=== PATIENT | male | born 1945 | race Two or more races ===

== ENCOUNTER 2016-09-27 08:33 | Emergency (ER) | payer MEDICARE, MEDICAID ==
[~2016-09-27] VITALS: Ht 172.7 cm; Wt 97.1 kg
[~2016-09-27 08:33] MED LIST: ACE3T PO; B-COCAP23 PO; CALC667C PO; CHOL50006 PO; CLIN1CAP4 PO; DOC100C PO; GABA300C8 PO; GLIP-115 PO; INSU70IN9 SC; OMEP20TA44 PO; SACC250C PO; SIMV-13 PO; TERA5CAP42 PO; TRAM50TA2 PO; WARF2TAB55 PO
[2016-09-27 09:19] VITALS: BP 121/63
[2016-09-27 09:42] LABS: Basophils # (auto) 0 uL; Basophils % (auto) 0.2 % (0.0-2.0); Eosinophils # (auto) 0.1 uL; Eosinophils % (auto) 1.6 % (0.0-7.0); Hematocrit 42.5 % (41.0-53.0); Hemoglobin 13.7 g/dL (13.5-17.5); Lymphocytes # (auto) 0.8 uL; Mean Corpuscular Hemoglobin 30.6 pg (28.0-32.0); Mean Corpuscular Hgb Conc. 32.1 g/dL (32.0-36.0); Mean Corpuscular Volume 95.2 fL (80.0-100.0); Mean Platelet Volume 6.2 fL (7.4-10.4); Monocytes # (auto) 0.4 uL; Monocytes % (auto) 6.9 % (0.0-12.0); Neutrophils # (auto) 4.2 uL; Neutrophils % (auto) 77.3 % (37.0-80.0); Platelet Count (auto) 185 10^3/uL (140-450); Red Cell Distribution Width 17.3 % (11.6-16.0); White Blood Cell 5.4 10^3/uL (4.4-10.8)
[2016-09-27 10:07] LABS: Albumin 3.6 g/dL (3.4-5.0); BUN/Creatinine Ratio 5.5; Bilirubin, Total 0.6 mg/dL (0.2-1.0); Calcium 8.7 mg/dL (8.5-10.1); Potassium 4.2 mmol/L (3.5-5.1); Total Protein 7.4 g/dL (6.4-8.2)
== END 2016-09-27 10:06 | disposition home or self-care (01) ==
LOC: ER 08:33
DX: L02.413 Cutaneous abscess of right upper limb (principal); Z79.899 Other long term (current) drug therapy; Z79.4 Long term (current) use of insulin; Z79.01 Long term (current) use of anticoagulants; I13.2 Hypertensive heart and chronic kidney disease with heart failure and with stage 5 chronic kidney disease, or end stage renal disease; N18.6 End stage renal disease; I50.9 Heart failure, unspecified; E11.22 Type 2 diabetes mellitus with diabetic chronic kidney disease; E78.5 Hyperlipidemia, unspecified; Z86.73 Personal history of transient ischemic attack (TIA), and cerebral infarction without residual deficits; Z99.2 Dependence on renal dialysis
CPT/HCPCS: 36415; 80053; 82962; 85025

== ENCOUNTER 2017-07-13 13:18 | Emergency (ER) | payer MEDICARE, MEDICAID ==
[~2017-07-13] VITALS: Ht 172.7 cm; Wt 111.1 kg
[~2017-07-13 13:18] MED LIST changes: +CEPH-37 PO; -CLIN1CAP4 PO; +GABA-497 PO; -GABA300C8 PO
[2017-07-13 14:10] LABS: Basophils # (auto) 0.1 uL; Basophils % (auto) 1.1 % (0.0-2.0); Eosinophils # (auto) 0.2 uL; Eosinophils % (auto) 3.1 % (0.0-7.0); Hematocrit 36.3 % (41.0-53.0); Lymphocytes # (auto) 1.1 uL; Lymphocytes % (auto) 17.2 % (10.0-50.0); Mean Corpuscular Hemoglobin 31.6 pg (28.0-32.0); Mean Corpuscular Hgb Conc. 33.2 g/dL (32.0-36.0); Mean Corpuscular Volume 95.3 fL (80.0-100.0); Monocytes # (auto) 0.6 uL; Monocytes % (auto) 8.5 % (0.0-12.0); Neutrophils # (auto) 4.6 uL; Neutrophils % (auto) 70.1 % (37.0-80.0); Nucleated Red Blood Cells % 0.1 %; Platelet Count (auto) 123 10^3/uL (140-450); Red Blood Cells 3.81 10^6/uL (4.5-5.90); Red Cell Distribution Width 15.1 % (11.8-14.3); White Blood Cell 6.6 10^3/uL (4.4-10.8)
[2017-07-13 14:49] LABS: Albumin 3.7 g/dL (3.4-5.0); BUN/Creatinine Ratio 6.3; Bilirubin, Total 0.5 mg/dL (0.2-1.0); Calcium 7.8 mg/dL (8.5-10.1); Potassium 4.8 mmol/L (3.5-5.1); Total Protein 7.8 g/dL (6.4-8.2)
[2017-07-14] MEDS ORDERED: CLINDAMYCIN HCL 150 MG CAP PO ONE (00:15)
[2017-07-14] MEDS ORDERED: CEPHALEXIN 250 MG CAP PO ONE (00:15)
[2017-07-14 01:20] VITALS: BP 168/81
== END 2017-07-14 01:31 | disposition home or self-care (01) ==
LOC: ER 13:18
DX: T82.9XXA Unspecified complication of cardiac and vascular prosthetic device, implant and graft, initial encounter (principal); I13.2 Hypertensive heart and chronic kidney disease with heart failure and with stage 5 chronic kidney disease, or end stage renal disease; E11.22 Type 2 diabetes mellitus with diabetic chronic kidney disease; N18.6 End stage renal disease; I50.9 Heart failure, unspecified; Z79.4 Long term (current) use of insulin; E78.5 Hyperlipidemia, unspecified; Z86.73 Personal history of transient ischemic attack (TIA), and cerebral infarction without residual deficits; Y92.89 Other specified places as the place of occurrence of the external cause
CPT/HCPCS: 36415; 80053; 85025; 87040

== ENCOUNTER 2017-10-01 23:59 | Inpatient (IN) | payer MEDICARE, MEDICAID ==
[~2017-10-01] VITALS: Ht 172.7 cm; Wt 115.1 kg
[~2017-10-01 23:59] MED LIST changes: -GABA-497 PO; +GABA300C10 PO
[2017-10-02] MEDS ORDERED: SODIUM CHLORIDE 0.9% 300 ML IV ONE (00:45)
[2017-10-02 01:15] LABS: Basophils # (auto) 0 uL; Basophils % (auto) 0.2 % (0.0-2.0); Eosinophils # (auto) 0 uL; Eosinophils % (auto) 0.3 % (0.0-7.0); Hematocrit 41.5 % (41.0-53.0); Hemoglobin 13.5 g/dL (13.5-17.5); Lymphocytes # (auto) 0.4 uL; Lymphocytes % (auto) 2.5 % (10.0-50.0); Mean Corpuscular Hemoglobin 31.1 pg (28.0-32.0); Mean Corpuscular Hgb Conc. 32.6 g/dL (32.0-36.0); Mean Corpuscular Volume 95.6 fL (80.0-100.0); Monocytes # (auto) 0.7 uL; Monocytes % (auto) 4.8 % (0.0-12.0); Neutrophils # (auto) 13.9 uL; Neutrophils % (auto) 92.2 % (37.0-80.0); Platelet Count (auto) 134 10^3/uL (140-450); Red Blood Cells 4.34 10^6/uL (4.5-5.90)
[2017-10-02 01:23] LABS: INR 2.78 (0.9-1.15); Partial Thromboplastin Time 42.9 sec (22.64-33.71); Prothrombin Time 30.6 sec (9.37-12.3)
[2017-10-02 02:04] LABS: Albumin 3.2 g/dL (3.4-5.0); BUN/Creatinine Ratio 6.3; Bilirubin, Total 0.5 mg/dL (0.2-1.0); Calcium 8.2 mg/dL (8.5-10.1); Magnesium 2.2 mg/dL (1.6-2.6); Potassium 5.1 mmol/L (3.5-5.1)
[2017-10-02] MEDS ORDERED: ACETAMINOPHEN 325 MG TAB PO ONE (04:00)
[2017-10-02] MEDS ORDERED: IBUPROFEN 600 MG TAB PO ONE (05:15)
[2017-10-02] MEDS ORDERED: cefTRIAXone 1GM/10ml IVPUSH 10 ML IV ONE (05:30)
[2017-10-02] MEDS ORDERED: FUROSEMIDE 40 MG/4 ML VIAL IV ONE (05:30)
[2017-10-02] MEDS ORDERED: ONDANSETRON HCL 4 MG/2 ML VIAL IV PRN (05:45)
[2017-10-02] MEDS ORDERED: ACETAMINOPHEN 500 MG TAB PO PRN (05:45)
[2017-10-02] MEDS ORDERED: VANCOMYCIN PER PHARMACY 0 MG IV SCH (05:45)
[2017-10-02] MEDS: GABAPENTIN 300 MG CAP PO SCH ×3 (05:58→21:47)
[2017-10-02] MEDS ORDERED: VANCOMYCIN 1GM/250ML 250 ML IV ONE (06:00)
[2017-10-02] MEDS ORDERED: MORPHINE SULF INJ 2 MG/ML SYRINGE 1ML IV PRN (06:15)
[2017-10-02] MEDS ORDERED: NITROGLYCERIN 0.4 MG SL TAB SL PRN (06:15)
[2017-10-02 09:26] VITALS: BP 139/57
[2017-10-02] MEDS ORDERED: SODIUM CHL 0.9% 1000 ML BAG XX ONE (11:15)
[2017-10-02] MEDS ORDERED: DEXTROSE (50%) 50ML SYRG IV PRN (14:15)
[2017-10-02 14:46] LABS: Urine Bacteria MANY /hpf (None Seen); Urine Blood 1+ /uL (Negative); Urine Mucus FEW (None Seen); Urine Specific Gravity 1.014 (1.001-1.035); Urine WBC 513 /hpf (0 - 3); Urine WBC Clumps PRESENT /hpf (None Seen)
[2017-10-02] MEDS ORDERED: WARFARIN SODIUM 2 MG TAB PO ONE (17:00)
[2017-10-02] MEDS: PANTOPRAZOLE 40 MG TAB PO SCH (17:43)
[2017-10-02] MEDS: ACCU-CHEK COMFORT CURVE STRIP VI SCH ×2 (17:51→21:48)
[2017-10-02] MEDS: InsuLIN REG 1unit/0.01ml Soln (100units/ml) SC SCH ×2 (17:54→21:48)
[2017-10-02 18:35] VITALS: BP 110/90
[2017-10-02] MEDS: ATORVASTATIN 20 MG TAB PO SCH (21:47)
[2017-10-02 22:00] VITALS: BP 98/43
[2017-10-03 05:00] VITALS: BP 130/40
[2017-10-03] MEDS: GABAPENTIN 300 MG CAP PO SCH ×3 (05:31→20:41)
[2017-10-03] MEDS: ACCU-CHEK COMFORT CURVE STRIP VI SCH ×5 (06:10→22:00)
[2017-10-03] MEDS: InsuLIN REG 1unit/0.01ml Soln (100units/ml) SC SCH ×4 (06:10→20:42)
[2017-10-03 08:00] VITALS: BP 106/50
[2017-10-03 08:24] LABS: Basophils # (auto) 0 uL; Basophils % (auto) 0.1 % (0.0-2.0); Eosinophils # (auto) 0 uL; Eosinophils % (auto) 0.3 % (0.0-7.0); Hematocrit 38.9 % (41.0-53.0); Hemoglobin 12.6 g/dL (13.5-17.5); Lymphocytes # (auto) 0.9 uL; Lymphocytes % (auto) 7.7 % (10.0-50.0); Mean Corpuscular Hemoglobin 30.8 pg (28.0-32.0); Mean Corpuscular Hgb Conc. 32.3 g/dL (32.0-36.0); Mean Corpuscular Volume 95.3 fL (80.0-100.0); Monocytes # (auto) 0.9 uL; Monocytes % (auto) 7.2 % (0.0-12.0); Neutrophils # (auto) 10.4 uL; Neutrophils % (auto) 84.7 % (37.0-80.0); Platelet Count (auto) 114 10^3/uL (140-450); Red Blood Cells 4.08 10^6/uL (4.5-5.90); Red Cell Distribution Width 16.5 % (11.8-14.3); White Blood Cell 12.3 10^3/uL (4.4-10.8)
[2017-10-03 08:44] LABS: Albumin 2.8 g/dL (3.4-5.0); BUN/Creatinine Ratio 6.2; Bilirubin, Total 0.6 mg/dL (0.2-1.0); Calcium 7.9 mg/dL (8.5-10.1); Potassium 4.5 mmol/L (3.5-5.1); Total Protein 6.7 g/dL (6.4-8.2)
[2017-10-03 08:47] LABS: INR 1.88 (0.9-1.15); Partial Thromboplastin Time 46.8 sec (22.64-33.71); Prothrombin Time 20.6 sec (9.37-12.3)
[2017-10-03 09:22] VITALS: BP 129/64
[2017-10-03] MEDS ORDERED: SODIUM CHL 0.9% 1000 ML BAG XX ONE (10:15)
[2017-10-03] MEDS: PANTOPRAZOLE 40 MG TAB PO SCH (10:53)
[2017-10-03] MEDS: cefTRIAXone 1GM/10ml IVPUSH 10 ML IV SCH (10:53)
[2017-10-03] MEDS: HYDROcodone-ACET 5/325MG TAB PO PRN ×3 (10:54→20:41)
[2017-10-03] MEDS ORDERED: AZITHROMYCIN 500MG/ 250ML 250 ML IV ONE (11:45)
[2017-10-03] MEDS ORDERED: guaiFENesin-DM 100/10mg/5ml SYR PO PRN (11:45)
[2017-10-03 12:12] VITALS: BP 119/63
[2017-10-03] MEDS ORDERED: WARFARIN SODIUM 2.5 MG TAB PO ONE (17:00)
[2017-10-03 17:25] VITALS: BP 81/52
[2017-10-03] MEDS: ATORVASTATIN 20 MG TAB PO SCH (20:41)
[2017-10-03 22:00] VITALS: BP 150/65
[2017-10-04] VITALS (7 sets, daily range): BP systolic 102–136; BP diastolic 35–58
[2017-10-04] MEDS: GABAPENTIN 300 MG CAP PO SCH ×3 (05:13→22:24)
[2017-10-04] MEDS: InsuLIN REG 1unit/0.01ml Soln (100units/ml) SC SCH ×4 (05:13→22:28)
[2017-10-04] MEDS: ACCU-CHEK COMFORT CURVE STRIP VI SCH ×3 (05:13→18:08)
[2017-10-04 08:13] LABS: BUN/Creatinine Ratio 8.2; Calcium 7.8 mg/dL (8.5-10.1); Potassium 4.9 mmol/L (3.5-5.1)
[2017-10-04 08:15] LABS: Basophils # (auto) 0 uL; Basophils % (auto) 0.4 % (0.0-2.0); Eosinophils # (auto) 0 uL; Eosinophils % (auto) 0.8 % (0.0-7.0); Hematocrit 35.1 % (41.0-53.0); Hemoglobin 11.7 g/dL (13.5-17.5); Lymphocytes # (auto) 0.5 uL; Mean Corpuscular Hemoglobin 31.8 pg (28.0-32.0); Mean Corpuscular Hgb Conc. 33.2 g/dL (32.0-36.0); Mean Corpuscular Volume 95.7 fL (80.0-100.0); Monocytes # (auto) 0.4 uL; Monocytes % (auto) 7.3 % (0.0-12.0); Neutrophils # (auto) 4.9 uL; Neutrophils % (auto) 82.5 % (37.0-80.0); Platelet Count (auto) 109 10^3/uL (140-450); Red Blood Cells 3.67 10^6/uL (4.5-5.90); Red Cell Distribution Width 16.5 % (11.8-14.3)
[2017-10-04 08:17] LABS: INR 1.89 (0.9-1.15); Prothrombin Time 20.7 sec (9.37-12.3)
[2017-10-04] MEDS: cefTRIAXone 1GM/10ml IVPUSH 10 ML IV SCH (13:55)
[2017-10-04] MEDS: PANTOPRAZOLE 40 MG TAB PO SCH (13:56)
[2017-10-04] MEDS: AZITHROMYCIN 500MG/ 250ML 250 ML IV SCH (13:56)
[2017-10-04] MEDS ORDERED: LEVO500T21 PO (13:59)
[2017-10-04] MEDS ORDERED: WARFARIN SODIUM 2.5 MG TAB PO ONE (17:00)
[2017-10-04] MEDS: ATORVASTATIN 20 MG TAB PO SCH (22:23)
[2017-10-05 05:17] VITALS: BP 131/48
[2017-10-05] MEDS: GABAPENTIN 300 MG CAP PO SCH (05:39)
[2017-10-05] MEDS: ACCU-CHEK COMFORT CURVE STRIP VI SCH ×2 (06:20→11:30)
[2017-10-05] MEDS: InsuLIN REG 1unit/0.01ml Soln (100units/ml) SC SCH ×2 (06:21→11:30)
[2017-10-05 08:30] LABS: Basophils # (auto) 0 uL; Basophils % (auto) 0.5 % (0.0-2.0); Eosinophils # (auto) 0 uL; Hematocrit 38.3 % (41.0-53.0); Hemoglobin 12.6 g/dL (13.5-17.5); Lymphocytes # (auto) 0.8 uL; Lymphocytes % (auto) 17.7 % (10.0-50.0); Mean Corpuscular Hemoglobin 31.1 pg (28.0-32.0); Mean Corpuscular Volume 94.4 fL (80.0-100.0); Monocytes # (auto) 0.7 uL; Monocytes % (auto) 14.8 % (0.0-12.0); Nucleated Red Blood Cells % 0.2 %; Platelet Count (auto) 122 10^3/uL (140-450); Red Blood Cells 4.06 10^6/uL (4.5-5.90); Red Cell Distribution Width 15.9 % (11.8-14.3); White Blood Cell 4.5 10^3/uL (4.4-10.8)
[2017-10-05 08:36] LABS: INR 1.79 (0.9-1.15); Partial Thromboplastin Time 39.4 sec (22.64-33.71); Prothrombin Time 19.6 sec (9.37-12.3)
[2017-10-05 08:45] LABS: BUN/Creatinine Ratio 7.6; Potassium 4.8 mmol/L (3.5-5.1)
[2017-10-05] MEDS: cefTRIAXone 1GM/10ml IVPUSH 10 ML IV SCH (09:00)
[2017-10-05 09:18] VITALS: BP 113/62
[2017-10-05 09:44] VITALS: BP 113/62
[2017-10-05] MEDS: AZITHROMYCIN 500MG/ 250ML 250 ML IV SCH (10:00)
[2017-10-05] MEDS: PANTOPRAZOLE 40 MG TAB PO SCH (11:08)
[2017-10-05 13:21] VITALS: BP 127/76
[2017-10-05] MEDS ORDERED: WARFARIN SODIUM 10 MG TAB PO ONE (17:00)
[2017-12-23] MEDS ORDERED: GABA300C10 PO (02:29)
[2017-12-23] MEDS ORDERED: CALC667C PO (02:29)
[2017-12-23] MEDS ORDERED: OME20T PO (02:29)
[2017-12-23] MEDS ORDERED: ACET30TA15 PO (02:29)
[2017-12-23] MEDS ORDERED: INSREG3 SC (02:29)
[2017-12-23] MEDS ORDERED: BIS10RS PR (02:29)
[2017-12-23] MEDS ORDERED: WARF4TAB33 PO (02:29)
[2017-12-23] MEDS ORDERED: CHOL1000 PO (02:29)
[2017-12-23] MEDS ORDERED: INS7030I SC (02:29)
[2017-12-23] MEDS ORDERED: SIMV-13 PO (02:29)
[2017-12-23] MEDS ORDERED: DOCU100T15 PO (02:29)
[2017-12-23] MEDS ORDERED: TRAM50TA2 PO (02:29)
[2017-12-23] MEDS ORDERED: GLIP-116 PO (02:29)
[2017-12-23] MEDS ORDERED: TERA5CAP42 PO (02:29)
== END 2017-10-05 11:55 | DRG 871 ==
LOC: EDBD 23:59 → EDUNIT# 23:59 → ER 10-02 00:03 → TELE 10-02 00:04 → TELE-CENTR 10-02 18:57
PROVIDERS: ADMIT Nurse Practitioner Family; ATTEND Internal Medicine
DX: A41.9 Sepsis, unspecified organism (principal); G93.41 Metabolic encephalopathy; I13.2 Hypertensive heart and chronic kidney disease with heart failure and with stage 5 chronic kidney disease, or end stage renal disease; J18.9 Pneumonia, unspecified organism; D68.9 Coagulation defect, unspecified; E11.22 Type 2 diabetes mellitus with diabetic chronic kidney disease; E11.51 Type 2 diabetes mellitus with diabetic peripheral angiopathy without gangrene; I50.9 Heart failure, unspecified; N18.6 End stage renal disease; I69.354 Hemiplegia and hemiparesis following cerebral infarction affecting left non-dominant side; E66.01 Morbid (severe) obesity due to excess calories; D63.8 Anemia in other chronic diseases classified elsewhere; E78.5 Hyperlipidemia, unspecified; K21.9 Gastro-esophageal reflux disease without esophagitis; Z96.653 Presence of artificial knee joint, bilateral; Z79.01 Long term (current) use of anticoagulants; Z79.84 Long term (current) use of oral hypoglycemic drugs; Z79.899 Other long term (current) drug therapy; Z83.3 Family history of diabetes mellitus; Z86.718 Personal history of other venous thrombosis and embolism; Z99.2 Dependence on renal dialysis; Z68.38 Body mass index [BMI] 38.0-38.9, adult
CPT/HCPCS: 36415; 70450; 71045; 71046; 73560; 80048; 80053; 80061; 80202; 81001; 82306; 82962; 83036; 83605; 83735; 83880; 83970; 84100; 84484; 85025; 85610; 85730; 87040; 87086; 87400; 90935; 93005; 96361; 96374; 96375; 97163; J1815

== ENCOUNTER 2018-11-25 12:43 | Emergency (ER) | payer MEDICARE, MEDICAID ==
[~2018-11-25] VITALS: Ht 172.7 cm; Wt 113.4 kg
[~2018-11-25 12:43] MED LIST changes: -ACE3T PO; -B-COCAP23 PO; -CALC667C PO; -CHOL50006 PO; -DOC100C PO; +DOCU100C8 PO; -GLIP-115 PO; +GLIP-116 PO; -INSU70IN9 SC; +LEVO500T21 PO; +OMEP20TA PO; -OMEP20TA44 PO; -TERA5CAP42 PO; +WARF6TAB21 PO
[2018-11-25 14:04] LABS: Basophils # (auto) 0 uL; Basophils % (auto) 0.3 % (0.0-2.0); Eosinophils # (auto) 0 uL; Eosinophils % (auto) 0.6 % (0.0-7.0); Hematocrit 36.1 % (41.0-53.0); Hemoglobin 11.6 g/dL (13.5-17.5); INR 1.7 (0.9-1.15); Lymphocytes # (auto) 0.7 uL; Lymphocytes % (auto) 8.8 % (10.0-50.0); Mean Corpuscular Hemoglobin 31.9 pg (28.0-32.0); Mean Corpuscular Hgb Conc. 32.3 g/dL (32.0-36.0); Mean Corpuscular Volume 98.9 fL (80.0-100.0); Monocytes # (auto) 0.4 uL; Monocytes % (auto) 5.5 % (0.0-12.0); Neutrophils # (auto) 6.6 uL; Neutrophils % (auto) 84.8 % (37.0-80.0); Partial Thromboplastin Time 30.3 sec (23.78-33.04); Platelet Count (auto) 127 10^3/uL (140-450); Prothrombin Time 17.7 sec (9.27-12.13); Red Blood Cells 3.65 10^6/uL (4.5-5.90); White Blood Cell 7.8 10^3/uL (4.4-10.8)
[2018-11-25 14:21] LABS: Calcium 9.1 mg/dL (8.5-10.1); Potassium 3.8 mmol/L (3.5-5.1)
[2018-11-25 14:27] LABS: BUN/Creatinine Ratio 4.9; Bilirubin, Total 0.4 mg/dL (0.2-1.0)
[2018-11-25 18:30] VITALS: BP 145/77
== END 2018-11-25 19:15 | disposition home or self-care (01) ==
LOC: ER 12:43 → EDBD 12:43 → EDUNIT# 12:43 → ER 19:15
DX: S76.012A Strain of muscle, fascia and tendon of left hip, initial encounter (principal); S76.011A Strain of muscle, fascia and tendon of right hip, initial encounter; I13.2 Hypertensive heart and chronic kidney disease with heart failure and with stage 5 chronic kidney disease, or end stage renal disease; E11.22 Type 2 diabetes mellitus with diabetic chronic kidney disease; N18.6 End stage renal disease; I50.9 Heart failure, unspecified; J44.9 Chronic obstructive pulmonary disease, unspecified; E78.5 Hyperlipidemia, unspecified; W19.XXXA Unspecified fall, initial encounter; Y93.89 Activity, other specified; Y99.8 Other external cause status; Y92.89 Other specified places as the place of occurrence of the external cause
CPT/HCPCS: 36415; 71045; 72131; 72192; 80053; 83880; 84484; 85025; 85610; 85730